=== PATIENT | female | born 1990 | race Caucasian/White ===

== ENCOUNTER → 2022-12-05 13:13 | Outpatient (BNVA) | payer OTHER, SELFPAY | PROVIDERS: PCP Physical Medicine & Rehabilitation; Visit Provider Internal Medicine | DX: G57.93 Unspecified mononeuropathy of bilateral lower limbs (principal) | CPT/HCPCS: 99202 ==

== ENCOUNTER 2023-09-28 15:10 | Outpatient (AMB) | payer OTHER, SELFPAY ==
[2023-09-28 15:24] VITALS: BP 110/70; PULSE 88; O2SAT 98; BMI 36.0
--- NOTE | 2023-09-28 15:24 | MHC.OFFVIS ---
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 Pt reports that she was diagnosed with mild degree of sleep apnea and uses CPAP nightly. She can have occasional difficulty falling asleep but denies difficulty staying sleep. She can sleep average 7 hrs well without disruption. 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 She can have random sleep attack with cataplexy. She works at home, and can have occasional sleep attack, but not frequent. Increased anxiety and stress mostly triggers cataplexy. Pt uses modafinil 200 mg BID, 10 am and 1 pm. Pt currently followed by [facility]. Pt declined MSLT due to all her psychiatric medications. She has bipolar and severe anxiety, can't off the medication for MSLT. Pt was advised to have spinal tab to diagnose narcolepsy. However, she wants to know if her narcolepsy symptoms can be treated without diagnosed with narcolepsy. [facility] Medical History (Updated 09/28/23 @ 20:02 by Timothy Peterson CNP) Severe obesity Ovarian cyst LULA (obstructive sleep apnea) Lumbar stenosis Keratosis pilaris Hyperglycemia Fibromyalgia Summer-Danlos syndrome Diabetes mellitus type II, controlled Controlled substance agreement signed Chronic leg pain Chronic hip pain, bilateral Chronic glaucoma Bipolar 1 disorder Chronic fatigue syndrome Surgical History (Updated 09/28/23 @ 15:34 by Steph Burns MA) History of appendectomy H/O: knee surgery Family History (Updated 09/28/23 @ 15:35 by Steph Burns MA) Maternal Grandmother Cancer Social History (Updated 09/28/23 @ 15:34 by Steph Burns MA) Alcohol intake: never Patient Tobacco Use Status: Never used Tobacco Use of substances other than those prescribed or required for medical reasons: No Review of Systems Const All systems reviewed & are unremarkable except as noted in HPI and below Physical Exam Vital Signs: Last Vital Signs Pulse 88 09/28/23 15:24 BP 110/70 09/28/23 15:24 Pulse Ox 98 09/28/23 15:24 Oxygen Delivery Method Room Air 09/28/23 15:24 BMI result Body Mass Index 36.0 Const General: cooperative Nutritional Appearance: obese Orientation/consciousness: patient oriented x3 Limitations: wheelchair Neck Neck: Yes full ROM and Yes supple Resp Effort & Inspection: normal respiratory effort and able to speak in complete sentences Neuro General: patient oriented x3 Cranial nerves: Yes CN's II-XII intact bilaterally Cognition (Neuro): normal cognition Psych Appearance: grossly normal Mental Status: mental status grossly normal Assessment & Plan Assessment & Plan (1) LULA (obstructive sleep apnea): Code(s): G47.33 - Obstructive sleep apnea (adult) (pediatric) (2) Sleep attack: Code(s): G47.419 - Narcolepsy without cataplexy Plan Advised patient to undergo lumbar puncture to diagnosed with narcolepsy if she can't do MSLT. Discussed regarding Sunosi for hypersomnia treatment but patient does not want it at this time. Continue to use CPAP nightly, more than 4 hrs to treat sleep apnea. Coding Level of Care Code New Pt Level 3 (47326) Diagnoses LULA (obstructive sleep apnea) G47.33 Sleep attack G47.419
== END 2023-09-28 15:54 | disposition home or self-care (01) ==
PROVIDERS: PCP Physical Medicine & Rehabilitation; Visit Provider Nurse Practitioner Family
DX: G47.33 Obstructive sleep apnea (adult) (pediatric) (principal); G47.419 Narcolepsy without cataplexy
CPT/HCPCS: 99203

== ENCOUNTER → 2023-09-28 15:10 | Outpatient (BNVA) | payer OTHER, SELFPAY | PROVIDERS: PCP Physical Medicine & Rehabilitation; Visit Provider Nurse Practitioner Family | DX: G47.33 Obstructive sleep apnea (adult) (pediatric) (principal); G47.419 Narcolepsy without cataplexy | CPT/HCPCS: 99202 ==